=== PATIENT | female | born 1965 | race Caucasian/White ===

== ENCOUNTER 2018-12-06 10:55 | Emergency (ER) | payer OTHER ==
[2018-12-06] MEDS ORDERED: ACETAMINOPHEN 325 MG TABLET PO ONE (11:17)
--- NOTE | 2018-12-06 11:19 | ER Document Report ---
ED Medical Screen (RME) - General Chief Complaint: Head Injury without LOC Stated Complaint: FALL/HEAD PAIN Time Seen by Provider: 12/06/18 11:14 Mode of Arrival: Ambulatory Information source: Patient Notes: Patient states that she was walking down a flight of steps and fell down the bottom half about 6 steps hitting her head on pavement. There was no loss of consciousness no nausea or vomiting. Patient with hematoma to right parietal scalp. Patient complains of headache, neck and right knee pain. 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 A comprehensive ED assessment and evaluation of the patient, analysis of test results and completion of the medical decision making process will be conducted by additional ED providers. TRAVEL OUTSIDE OF THE [place] IN LAST 30 DAYS: No - Related Data Allergies/Adverse Reactions: dronabinol [From Marinol] Allergy (Verified 12/06/18 11:04) methotrexate Allergy (Verified 12/06/18 11:04) ursodiol Allergy (Verified 12/06/18 11:04) Past Medical History - Social History Chew tobacco use (# tins/day): No Frequency of alcohol use: None Drug Abuse: None Physical Exam - Vital signs Vitals: Temp Pulse Resp BP Pulse Ox 98.4 F 69 16 137/71 H 97 12/06/18 10:59 12/06/18 10:59 12/06/18 10:59 12/06/18 10:59 12/06/18 10:59 - Neurological Cognition: Normal [place] Coma Scale Eye Opening: Spontaneous [place] Coma Scale Verbal: Oriented [place] Coma Scale Motor: Obeys Commands [place] Coma Scale Total: 15 Course - Vital Signs Vital signs: Temp Pulse Resp BP Pulse Ox 98.4 F 69 16 137/71 H 97 12/06/18 10:59 12/06/18 10:59 12/06/18 10:59 12/06/18 10:59 12/06/18 10:59
--- NOTE | 2018-12-06 12:24 | RADIOLOGY REPORT (SQ) ---
EXAM DESCRIPTION: KNEE RIGHT 4 VIEWS COMPLETED DATE/TIME: 12/06/2018 12:03 pm REASON FOR STUDY: fall, r knee pain COMPARISON: None. NUMBER OF VIEWS: Four views. TECHNIQUE: AP, lateral, and both oblique radiographic images acquired of the right knee. LIMITATIONS: None. FINDINGS: MINERALIZATION: Normal. BONES: No acute fracture or dislocation. No worrisome bone lesions. JOINT: No effusion. SOFT TISSUES: No soft tissue swelling. No radio-opaque foreign body. OTHER: No other significant finding. IMPRESSION: NEGATIVE STUDY OF THE RIGHT KNEE. NO RADIOGRAPHIC EVIDENCE OF ACUTE INJURY. TECHNICAL DOCUMENTATION: JOB ID: [id number] [email or web address]- All Rights Reserved Reading location - IP/workstation name: [email or web address]
--- NOTE | 2018-12-06 12:26 | RADIOLOGY REPORT (SQ) ---
EXAM DESCRIPTION: CT HEAD WITHOUT COMPLETED DATE/TIME: 12/06/2018 12:04 pm REASON FOR STUDY: fall, HI, neck pain,hx low platelets COMPARISON: None. TECHNIQUE: Axial images acquired through the brain without intravenous contrast. Images reviewed wi th bone, brain and subdural windows. Images stored on PACS. All CT scanners at this facility use dose modulation, iterative reconstruction, and/or weight based d osing when appropriate to reduce radiation dose to as low as reasonably achievable (ALARA). [facility]: Dose Right [facility]: CareDose [facility]: Dose Right [facility]: Teradose 4D [facility]: [employer] RADIATION DOSE: CT Rad equipment meets quality standard of care and radiation dose reduction techniq ues were employed. CTDIvol: 53.2 mGy. DLP: 1017 mGy-cm. mGy. LIMITATIONS: None. FINDINGS: VENTRICLES: Normal size and contour. CEREBRUM: No masses. No hemorrhage. No midline shift. No evidence for acute infarction. Normal gra y/white matter differentiation. No areas of low density in the white matter. CEREBELLUM: No masses. No hemorrhage. No alteration of density. No evidence for acute infarction. EXTRAAXIAL SPACES: No fluid collections. No masses. ORBITS AND GLOBE: No intra- or extraconal masses. Normal contour of globe without masses. CALVARIUM: No fracture. PARANASAL SINUSES: No fluid or mucosal thickening. SOFT TISSUES: No mass or hematoma. OTHER: No other significant finding. IMPRESSION: NORMAL BRAIN CT WITHOUT CONTRAST. EVIDENCE OF ACUTE STROKE: NO. COMMENT: Quality ID # [id number]: Final reports with documentation of one or more dose reduction techniques (e.g., Automated exposure control, adjustment of the mA and/or kV according to patient size, use of iterative reconstruction technique) TECHNICAL DOCUMENTATION: JOB ID: [id number] [employer]- All Rights Reserved Reading location - IP/workstation name: [email or web address]
--- NOTE | 2018-12-06 12:46 | RADIOLOGY REPORT (SQ) ---
EXAM DESCRIPTION: CT CERVICAL SPINE WITHOUT COMPLETED DATE/TIME: 12/06/2018 12:04 pm REASON FOR STUDY: fall, HI, neck pain,hx low platelets COMPARISON: CT brain same date TECHNIQUE: Axial images acquired through the cervical spine without intravenous contrast. Images re viewed with lung, soft tissue and bone windows. Reconstructed coronal and sagittal MPR images review ed. Images stored on PACS. All CT scanners at this facility use dose modulation, iterative reconstruction, and/or weight based d osing when appropriate to reduce radiation dose to as low as reasonably achievable (ALARA). [facility]: Dose Right [facility]: CareDose [facility]: Dose Right [facility]: Teradose 4D [facility]: [employer] RADIATION DOSE: CT Rad equipment meets quality standard of care and radiation dose reduction techniq ues were employed. CTDIvol: 20.8 mGy. DLP: 447 mGy-cm. mGy. LIMITATIONS: None. FINDINGS: ALIGNMENT: Anatomic. MINERALIZATION: Normal. VERTEBRAL BODIES: No fractures or dislocation. Benign hemangioma in the T7 vertebral body DISCS: Broad diffuse posterior disc bulge and bony spurring at C5-6, with borderline central canal na rrowing and moderate left foraminal narrowing. Mild right C5-6 foraminal stenosis. FACETS, LATERAL MASSES, POSTERIOR ELEMENTS: No fractures. No dislocation. No acute findings. HARDWARE: None in the spine. VISUALIZED RIBS: No fractures. LUNG APICES AND SOFT TISSUES: 1.7 cm periphery calcified nodule left lower pole thyroid. OTHER: No other significant finding. IMPRESSION: No acute fracture or malalignment. TECHNICAL DOCUMENTATION: JOB ID: [id number] Quality ID # [id number]: Final reports with documentation of one or more dose reduction techniques (e.g., Au tomated exposure control, adjustment of the mA and/or kV according to patient size, use of iterative reconstruction technique) 2010 [employer]- All Rights Reserved Reading location - IP/workstation name: [email or web address]
[2018-12-06 13:01] LABS: ABSOLUTE LYMPHOCYTES (AUTO) 0.5 10^3/uL (0.5-4.7); ABSOLUTE MONOCYTES (AUTO) 0.6 10^3/uL (0.1-1.4); ABSOLUTE NEUT (AUTO) 2.6 10^3/uL (1.7-8.2); BASOPHILS % (AUTO) 0.1 % (0-2); EOSINOPHILS % (AUTO) 0.3 % (0-6); HEMATOCRIT 33.9 % (36.0-47.0); HEMOGLOBIN 11.7 g/dL (12.0-15.5); LYMPHOCYTES % (AUTO) 13.9 % (13-45); MEAN CORPUSCULAR HEMOGLOBIN 36.6 pg (27.0-33.4); MEAN CORPUSCULAR HGB CONC 34.5 g/dL (32.0-36.0); MEAN CORPUSCULAR VOLUME 106 fl (80-97); MONOCYTES % (AUTO) 15.3 % (3-13); RED BLOOD COUNT 3.19 10^6/uL (3.72-5.28); RED CELL DISTRIBUTION WIDTH 13.9 % (11.5-14.0); SEGMENTED NEUTROPHILS % (AUTO) 70.4 % (42-78); TOTAL CELLS COUNTED % (AUTO) 100 %; WHITE BLOOD COUNT 3.7 10^3/uL (4.0-10.5)
[2018-12-06 13:12] LABS: PLATELET COUNT 89 10^3/uL (150-450)
--- NOTE | 2018-12-06 14:04 | ER Document Report ---
HPI - HPI Time Seen by Provider: 12/06/18 11:14 Pain Level: 5 Context: Patient is a 53-year-old female with a history of leukemia and stem cell transplant who presents to the emergency department with a chief complaint of fall. Patient states around 1030 this morning she was walking down a flight of steep wooden steps with her hands full when she lost her footing and fell down. Patient reports she fell down about 6 steps. Patient reports she did strike the right side of her head on the cement. Patient denies loss of consciousness or vomiting. Patient denies confusion afterwards. Patient reports she does have a history of low platelets due to the stem cell transplant 2 years ago. Patient denies use of blood thinners or aspirin. Patient complains of right knee pain. Patient reports that her tetanus shot is up-to-date. - NEURO Neurology: REPORTS: Headache - REPRODUCTIVE Reproductive: DENIES: : - MUSCULOSKELETAL Musculoskeletal: REPORTS: Extremity pain - R knee Past Medical History - General Information source: Patient - Social History Smoking Status: Never Smoker Chew tobacco use (# tins/day): No Frequency of alcohol use: None Drug Abuse: None Lives with: Family Family History: None Patient has suicidal ideation: No Patient has homicidal ideation: No - Past Medical History Cardiac Medical History: Reports: Hx Hypertension Past Surgical History: Reports: Hx Hysterectomy, Hx Kidney (Renal Surgery) - biopsyComment Only: Hx Vascular Surgery - stem cell transplant Vertical Provider Document - CONSTITUTIONAL Agree With Documented VS: Yes Exam Limitations: No Limitations General Appearance: No Apparent Distress Notes: GENERAL: Well-appearing, well-nourished and in no acute distress. HEAD: Atraumatic, normocephalic. Abrasion noted to the right parietal aspect of the head. There is no laceration negative warren sign.. EYES: Pupils equal round and reactive to light, extraocular movements intact, sclera anicteric, conjunctiva are normal. ENT: TMs normal, nares patent, oropharynx clear without exudates. Moist mucous membranes. NECK: Normal range of motion, supple without lymphadenopathy or JVD. No cervical midline tenderness. LUNGS: Breath sounds clear to auscultation bilaterally and equal. No wheezes rales or rhonchi. HEART: Regular rate and rhythm without murmurs, rubs or gallops. ABDOMEN: Soft, nontender, normoactive bowel sounds. No guarding, no rebound. No masses appreciated. BACK: No cervical, thoracic, lumbar midline tenderness. No saddle anesthesia, normal distal neurovascular exam. GENITOURINARY: Deferred. EXTREMITIES: Normal range of motion, patient does have an abrasion to the right patella with surrounding ecchymosis. There is minimal edema. Patient is able to ambulate with a steady gait. Patient also has ecchymosis noted to the anterior aspect of the left lower leg. There is no abrasion, laceration or significant edema to this area. Patient denies numbness or tingling to upper or lower extremities. Patient does have strong acct exec bilaterally. Patient has strong bilateral +2 palpable brachial and radial pulses. NEUROLOGICAL: Cranial nerves II through XII grossly intact. Normal speech, normal gait. PSYCH: Normal mood, normal affect. SKIN: Warm, Dry, normal turgor, no rashes or lesions noted. - INFECTION CONTROL TRAVEL OUTSIDE OF THE [place] IN LAST 30 DAYS: No Course - Re-evaluation Re-evalutation: 12/06/18 Patient does have a disc bulge at C5 and C6. I did discuss this finding with Dr. Dietz who is my supervising physician. Patient does not have any numbness or tingling to her upper or lower extremities. Patient does have strong and equal acct exec bilaterally. I did inform the patient of these findings so she can be aware that she has a bulging disc and to let her primary care physician know. I did inform her to seek medical attention if she does develop any numbness or tingling or any new symptoms. Patient verbalized understanding. Patient is visiting from out of town and states she will follow up with her PCP this week. - Vital Signs Vital signs: Temp Pulse Resp BP Pulse Ox 98.4 F 69 16 137/71 H 97 12/06/18 10:59 12/06/18 10:59 12/06/18 10:59 12/06/18 10:59 12/06/18 10:59 - Laboratory Result Diagrams: 12/06/18 12:22 Laboratory results interpreted by me: 12/06/18 12:22 WBC 3.7 L RBC 3.19 L Hgb 11.7 L Hct 33.9 L MCV 106 H MCH 36.6 H Plt Count 89 L Marin % (Auto) 15.3 H 12/06/18 18:01 Laboratory 12/06/18 12:22 WBC 3.7 L RBC 3.19 L Hgb 11.7 L Hct 33.9 L MCV 106 H MCH 36.6 H MCHC 34.5 RDW 13.9 Plt Count 89 L Lymph % (Auto) 13.9 Marin % (Auto) 15.3 H Eos % (Auto) 0.3 Baso % (Auto) 0.1 Absolute Neuts (auto) 2.6 Absolute Lymphs (auto) 0.5 Absolute Monos (auto) 0.6 Absolute Eos (auto) 0.0 Absolute Basos (auto) 0.0 Seg Neutrophils % 70.4 Patient does have a low platelet count of 89. Patient reports she did have a stem cell transplant 2 years ago and has had a a low platelet count since then. - Diagnostic Test Radiology reviewed: Reports reviewed Radiology results interpreted by me: 12/06/18 17:[address] 12/06/18 11:17 IMPRESSION: No acute fracture or malalignment. Head CT 12/06/18 11:17 IMPRESSION: NORMAL BRAIN CT WITHOUT CONTRAST. EVIDENCE OF ACUTE STROKE: NO. Knee X-Ray 12/06/18 11:17 IMPRESSION: NEGATIVE STUDY OF THE RIGHT KNEE. NO RADIOGRAPHIC EVIDENCE OF ACUTE INJURY. Discharge - Discharge Clinical Impression: Fall Qualifiers: Encounter type: initial encounter Qualified Code(s): W19.XXXA - Unspecified fall, initial encounter Head injury Qualifiers: Encounter type: initial encounter Qualified Code(s): S09.90XA - Unspecified injury of head, initial encounter Contusion of knee, right Qualifiers: Encounter type: initial encounter Qualified Code(s): S80.01XA - Contusion of right knee, initial encounter Contusion of left leg Qualifiers: Encounter type: initial encounter Qualified Code(s): S80.12XA - Contusion of left lower leg, initial encounter Condition: Stable Disposition: HOME, SELF-CARE Additional Instructions: Today you are seen in emergency department after a fall. The CT of your head, neck and right knee were all unremarkable. It was noted that you have a bulging disc in your C5 and C6. Please follow-up with your primary care physician to make her aware of this. He did not have any acute abnormality of the brain such as a brain bleed or skull fracture. Please keep the abrasion to your right knee clean and dry. You may use an [id number] antibiotic ointment to this area. Do expect to feel sore over the next 2 to 3 days. Seek medical attention if you do develop persistent vomiting, lethargy, severe headache, or any other concerning signs or symptoms. Please follow-up with your primary care physician for reevaluation. Do not advise a driver education instructor over the next 24 hours as you do have a head injury. Head Injury Your child's examination shows no evidence of brain injury. The child can therefore be safely observed at home. Give clear liquids only for the first eight hours. Acetaminophen or ibuprofen can safely be given for pain. Follow the directions on the bottle. Do not give any medication that may alter her/his level of alertness. Limit activity for the first 24 hours -- bed rest is advisable at first. Several times during the first 24 hours, check the patient to see if the pupils are equal in size to each other, that the patient is easily arousable, and responds normally. Contact your doctor or go to the hospital if any of the following things occur: Persistent or projectile vomiting, a seizure, confusion, unequal pupil size, difficulty in arousing the patient, worsening or continued headache, or failure to improve as expected. Head Injury Precautions At this point, there is no evidence that your head injury is serious. Observation is necessary, however. Take only clear liquids for the first few hours, unless told otherwise by the doctor. If no pain medication was prescribed, you may take acetaminophen according to the directions on the bottle. Do not take any medication that may alter your level of alertness (unless you've discussed it with the doctor first). Limit activity for the first 24 hours. Bed rest is best. During the first 24 hours, check to see approximately every two to three hours that the patient is easily arousable, responds normally, and can perform common tasks such as walking without difficulty. Contact your doctor or go to the hospital if any of the following things occur: Persistent vomiting, difficulty in arousing the patient, worsening or continued headache, or failure to improve as expected. Head injuries can cause symptoms that persist for a few days or even a few weeks.
[2018-12-06 14:20] VITALS: BP 144/69
== END 2018-12-06 14:19 | disposition home or self-care (01) ==
LOC: ER 10:55
DX: S09.90XA Unspecified injury of head, initial encounter (principal); S80.01XA Contusion of right knee, initial encounter; S80.12XA Contusion of left lower leg, initial encounter; W10.9XXA Fall (on) (from) unspecified stairs and steps, initial encounter; Z85.6 Personal history of leukemia; Z94.84 Stem cells transplant status; I10 Essential (primary) hypertension
CPT/HCPCS: 36415; 70450; 72125; 85025; 99284